=== PATIENT | female | born 2000 | race Caucasian/White ===

== ENCOUNTER 2019-07-05 17:25 | Emergency (ER) | payer OTHER, BC, SELFPAY ==
[2019-07-05 17:26] VITALS: BP 142/92; PULSE 98; RESP 16; TEMP 36.1; O2SAT 100
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
== END 2019-07-05 18:05 | disposition home or self-care (01) ==
PROVIDERS: Emergency Provider Emergency Medicine
DX: S16.1XXA Strain of muscle, fascia and tendon at neck level, initial encounter (principal); V49.40XA Driver injured in collision with unspecified motor vehicles in traffic accident, initial encounter
CPT/HCPCS: 99283